=== PATIENT | female | born 1990 | race Caucasian/White ===

== ENCOUNTER 2024-09-14 05:45 | Day surgery (SDC) | payer OTHER ==
[2024-09-14] MEDS ORDERED: MEPERIDINE HCL/PF 50 MG/ML VIAL IV ONE (09:15)
[2024-09-14] MEDS ORDERED: MIDAZOLAM HCL/PF 5 MG/ML VIAL IV ONE (09:15)
[2024-09-14] MEDS ORDERED: DIPHENHYDRAMINE HCL 50 MG/ML VIAL 1ML IV ONE (09:15)
== END 2024-09-14 10:40 | disposition home or self-care (01) ==
LOC: AMB-ENDOS 05:45
PROVIDERS: ATTEND Surgery
DX: K29.50 Unspecified chronic gastritis without bleeding (principal); K44.9 Diaphragmatic hernia without obstruction or gangrene; K31.7 Polyp of stomach and duodenum; E66.01 Morbid (severe) obesity due to excess calories